=== PATIENT | male | born 1940 | race Caucasian/White ===

== ENCOUNTER 2016-06-16 16:14 | Emergency (ER) | payer MEDICARE ==
--- NOTE | ~2016-06-16 | ER ---
PATIENT'S NAME: ELLI [facility]MAN [facility] AGE: 76 Y [address] ROOM: [place] [address] LOCATION: ED ADMIT DATE: 06/16/2016 ER/Outpatient Report DISCHARGE DATE: 06/16/2016 FAMILY PHYSICIAN: Channing Villalobos MD ATTENDING PHYSICIAN: Jean-Claude Morales Admission date and time documented in medical record. I saw the patient at 1630 hours. CHIEF COMPLAINT: Chest achiness, discomfort, and shortness of breath. HISTORY OF PRESENT ILLNESS: This patient is a 76-year-old male who was out fixing fence. 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 He came in the house. About 0100 hours, he developed some chest discomfort, mid substernal with some shortness of breath. No diaphoresis. No nausea, vomiting. No lightheadedness, dizziness, syncope, or near syncope. No fall or trauma. No headache, eyes, ears, nose, throat, neck, or spine pain. No recent coughs, colds, flus, fever, chills, or sweats. Does have olk-vngeadu-njmbgudgs diabetes mellitus. No abdominal pain, nausea, vomiting, or diarrhea. No urinary complaints. No fever, chills, or sweats. No history of lung or heart troubles. No joint, muscle swelling, redness, or pain. No skin eruptions or rash. No history of neuro changes, psych issues. Does have acg-uywzwgd-prhycvvaf diabetes mellitus. HOME MEDICATIONS: See attached medication list. ALLERGIES: NONE. SOCIAL HISTORY: Nonsmoker. Does chew tobacco. Does drink a few beers a day. SIGNIFICANT PAST MEDICAL HISTORY: Tobacco abuse and way-xrzrvmz-godrjythz diabetes mellitus. OPERATIONS: Tonsillectomy. REVIEW OF SYSTEMS: All systems reviewed by me are negative with the exception of those discussed in the history of present illness. PATIENT'S NAME: ELLI HARTMAN [facility] AGE: 76 Y [address] ROOM: [place] [address] LOCATION: [facility] ADMIT DATE: 06/16/2016 ER/Outpatient Report DISCHARGE DATE: 06/16/2016 FAMILY PHYSICIAN: Channing Villalobos MD ATTENDING PHYSICIAN: Jean-Claude Morales PHYSICAL EXAMINATION: VITAL SIGNS: Temperature 97.3, tympanic; pulse 100, respirations 16, blood pressure 154/74, O2 saturation on room air was 95%. Franki Coma Scale was 15. HEAD: Normocephalic. EYES: Extraocular muscles intact. PERRL. Sclerae and conjunctivae clear. Nonicteric. EARS, NOSE, THROAT: Clear. Mucous membranes moist. Teeth and jaw intact. NECK: No nuchal rigidity. No thyromegaly or cervical adenopathy. No tenderness. SPINE: Nontender. No deformity. LUNGS: Scattered rhonchi. Coarse cough. Decreased breath sounds diffusely. No rales or wheezes. HEART: Regular. Pulses are palpable. ABDOMEN: Soft, nondistended, nontender. Good bowel tones. No organomegaly or abnormal mass palpable. EXTREMITIES: Without peripheral edema, cyanosis, or deformity. NEUROVASCULAR: Intact. SKIN: Clear. No skin eruptions or rash. LABORATORY DATA: Chest x-ray shows what looks like to be a basilar infiltrate pneumonia. We will review x-ray with the radiologist. CMS was normal except for an elevated glucose 214, magnesium of 2.1. CPK is 109. Point of care cardiac enzymes were normal. White count was 19,300, 86 segs, 6 lymphs, 6 monos, 2 eos, 1 baso, hemoglobin is 15.9, hematocrit 47.6, platelet count was 216,000 PTT was 26, pro-time is 10 with an INR of 0.95. EMERGENCY DEPARTMENT COURSE: Did give the patient 2 g of Rocephin IV in the emergency room. IMPRESSION: Pneumonia with elevated white count, left shift. PLAN: I did give the patient 2 g of Rocephin IV in the emergency room. Four baby aspirin orally in the emergency department. Sent home on Z-Omar take as directed. Continue present home medications and care. Fluids and diet as tolerated. Follow up with personal physician in 4 or 5 days or sooner if needed. Discussion ensued with the patient and his , concerning my findings and recommendations, they understand. PATIENT'S NAME: ELLI HARTMAN [facility] AGE: 76 Y [address] ROOM: [place], [place] [address] LOCATION: [facility] ADMIT DATE: 06/16/2016 ER/Outpatient Report DISCHARGE DATE: 06/16/2016 FAMILY PHYSICIAN: Channing Villalobos MD ATTENDING PHYSICIAN: Jean-Claude Morales MD SDS/modl /[id number] d: 06/16/16 2351 t: 06/17/16 0611, OUTPATIENT REPORT
[2016-06-16 16:52] LABS: BASOPHIL # 0.1 K/uL (0.0-0.2); BASOPHIL % 0.5 %; EOSINOPHIL # 0.4 K/uL (0.0-0.5); EOSINOPHIL % 1.9 %; HEMATOCRIT 47.6 % (37.0-53.0); HEMOGLOBIN 15.9 g/dL (11.0-16.0); IMMATURE GRANULOCYTE # 0.1 K/uL (0.0-0.3); IMMATURE GRANULOCYTE % 0.5 %; LYMPHOCYTE # 1.1 K/uL (0.8-4.0); LYMPHOCYTE % 5.5 %; MCH 30.8 pg (27.0-34.0); MCHC 33.4 gm/dL (32.0-36.5); MCV 92.2 fl (83.0-98.0); MONOCYTE # 1.1 K/uL (0.0-1.0); MONOCYTE % 5.6 %; MPV 10.4 fl (9.4-12.4); NEUTROPHIL # (ANC) 16.6 K/uL (1.4-9.0); NRBC % 0 /100WBC (0-0.00); PLATELET COUNT 216 K/uL (150-450); RBC 5.16 M/uL (3.50-5.50); RDW-CV 13.2 % (11.9-14.6)
[2016-06-16 16:53] LABS: WBC 19.3 K/uL (4.0-11.0)
[2016-06-16 17:01] LABS: INR - (THERAPEUTIC) 0.95 (0.92-1.07); PTT 26 SECONDS (25-32)
[2016-06-16 17:13] LABS: ALBUMIN 3.8 gm/dL (3.5-5.0); ALK PHOS 82 IU/L (33-138); ALT 30 IU/L (12-78); BLOOD UREA NITROGEN 23 mg/dL (6-24); CALCIUM 8.5 mg/dL (8.5-10.5); CHLORIDE 105 mMol/L (96-110); CO2 23 mMol/L (22-32); CREATININE 1.1 mg/dL (0.6-1.3); ESTIMATED GFR (MDRD EQUATION) > 60; SODIUM 139 mMol/L (135-145); TOTAL BILIRUBIN 0.4 mg/dL (0.0-1.5); TOTAL PROTEIN 6.9 g/dL (6.0-8.4)
[2016-06-16 17:14] LABS: ANION GAP 15.9 (10.0-19.0); AST 33 IU/L (10-40); CPK 109 IU/L (35-332); MAGNESIUM 2.1 mg/dL (1.8-2.6); POTASSIUM 4.9 mMol/L (3.7-5.1)
== END 2016-06-16 18:19 | disposition disaster alternative care site (69) ==
LOC: GMED 16:14
PROVIDERS: Emergency Medicine
DX: J18.9 Pneumonia, unspecified organism (principal); D72.829 Elevated white blood cell count, unspecified; E11.9 Type 2 diabetes mellitus without complications; F17.220 Nicotine dependence, chewing tobacco, uncomplicated; Z79.82 Long term (current) use of aspirin; Z79.84 Long term (current) use of oral hypoglycemic drugs; Z90.89 Acquired absence of other organs
CPT/HCPCS: J0696